=== PATIENT | female | born 1960 | race Caucasian/White ===

== ENCOUNTER 2019-02-26 08:35 | Outpatient (CLI) | payer BC ==
--- NOTE | 2019-02-26 09:27 | Ultrasound Report ---
LEFT BREAST ULTRASOUND HISTORY: Recall for abnormal mammogram. COMPARISON: 02/02/2019 and 02/19/2019 mammograms FINDINGS: Ultrasound of the upper outer left breast was performed and demonstrated no mass, cyst or s hadowing. An irregular homogeneously echogenic structure correlates with the mammographic asymmetry a nd the ultrasound appearance is consistent with a band of fibrosis.. IMPRESSION Benign asymmetric tissue left breast. If the clinical examination remains stable, recommend bilateral annual screening mammographic evaluat ion. BIRADS 2: Benign Signer Name: Stephen Chirinos MD Signed: 02/26/2019 9:22 AM Workstation Name: [id number]
== END 2019-02-26 08:36 | disposition home or self-care (01) ==
LOC: SPVWC 08:35
PROVIDERS: ATTEND Surgery
DX: N64.89 Other specified disorders of breast (principal)